=== PATIENT | male | born 1975 | race American Indian/Alaskan Native ===

== ENCOUNTER 2021-10-05 14:15 | Emergency (ER) | payer SELFPAY ==
[2021-10-05] MEDS ORDERED: KETOROLAC 60 MG/2 ML INJ IM STA (20:52)
[2021-10-05] MEDS ORDERED: oxyCODONE /ACETAMINOPHEN 5-325MG TAB PO ONE (20:52)
--- NOTE | 2021-10-05 20:54 | Emergency Department Report ---
ED General Adult HPI - General Chief complaint: Fall Stated complaint: BACK PAIN (FALL) Time Seen by Provider: 10/05/21 20:50 Source: patient Mode of arrival: Ambulatory Limitations: No Limitations - Related Data Previous Rx's Medication Instructions Recorded Last Taken Type Ketorolac [Toradol] 10 mg PO Q6H PRN #15 tablet 10/06/21 Unknown Rx methOCARBAMOL [Robaxin TAB] 750 mg PO Q8H PRN #14 tablet 10/06/21 Unknown Rx Allergies Allergy/AdvReac Type Severity Reaction Status Date / Time No Known Allergies Allergy Verified 10/05/21 14:38 ED Review of Systems ROS: Stated complaint: BACK PAIN (FALL) Other details as noted in HPI Comment: All other systems reviewed and negative ED Past Medical Hx - Social History Smoking Status: Current Every Day Smoker - Medications Home Medications: Home Medications Medication Instructions Recorded Confirmed Last Taken Type Ketorolac [Toradol] 10 mg PO Q6H PRN #15 tablet 10/06/21 Unknown Rx methOCARBAMOL [Robaxin TAB] 750 mg PO Q8H PRN #14 tablet 10/06/21 Unknown Rx ED Physical Exam - General Limitations: No Limitations General appearance: alert, in no apparent distress - Head Head exam: Present: atraumatic, normocephalic - Eye Eye exam: Present: normal appearance, PERRL, EOMI Pupils: Present: normal accommodation - ENT ENT exam: Present: normal exam, normal orophraynx, mucous membranes moist, TM's normal bilaterally - Neck Neck exam: Present: normal inspection, full ROM - Respiratory Respiratory exam: Present: normal lung sounds bilaterally. Absent: respiratory distress, wheezes, rales, rhonchi, chest wall tenderness, accessory muscle use - Cardiovascular Cardiovascular Exam: Present: regular rate, normal rhythm. Absent: systolic murmur, diastolic murmur, rubs, gallop - GI/Abdominal GI/Abdominal exam: Present: soft, normal bowel sounds. Absent: distended, tenderness - Rectal Rectal exam: Present: deferred - Extremities Exam Extremities exam: Present: normal inspection, tenderness, normal capillary refill - Expanded Upper Extremity Exam Left Shoulder Exam: Present: tenderness, tenderness over AC joint. Absent: laceration, ecchymosis, crepidus, dislocation Forearm Wrist exam: Present: full ROM, tenderness, swelling. Absent: abrasion, laceration, erythema, tenderness over anatomical snuff box, pain with axial thumb loading Vascular: Present: normal capillary refill. Absent: vascular compromise - Back Exam Back exam: Present: normal inspection, paraspinal tenderness, vertebral tenderness (lumvar and right SI joint). Absent: CVA tenderness (R), CVA tenderness (L) - Neurological Exam Neurological exam: Present: alert, oriented X3, CN II-XII intact, normal gait - Psychiatric Psychiatric exam: Present: normal affect, normal mood - Skin Skin exam: Present: warm, dry, intact, normal color. Absent: rash ED Course Vital Signs 10/05/21 14:35 Temperature 97.4 F L Pulse Rate 68 Respiratory 20 Rate Blood Pressure 188/57 O2 Sat by Pulse 100 Oximetry ED Medical Decision Making - Radiology Data Radiology results: report reviewed [address] [address] XRay Report Signed Patient: SALOMÓN LESLIE MR#: [id number] : 1975 Acct:[id number] Age/Sex: 46 / M ADM Date: 10/05/21 Loc: ED Attending Dr: Ordering Physician: HOWARD AGUIRRE Date of Service: 10/05/21 Procedure(s): XR spine lumbosacral 2-3V Accession Number(s): [id number] cc: HOWARD AGUIRRE Fluoro Time In Minutes: Lumbar spine 3 views INDICATION: Low back pain after injury IMPRESSION: Moderate neural foraminal stenosis at L5-S1 secondary to discogenic and facet arthropathy. No fracture or subluxation is is identified. Signer Name: Saran Coy MD Signed: 10/05/2021 9:52 PM Workstation Name: [id number] Transcribed By: Dictated By: Saran Coy MD Electronically Authenticated By: Saran Coy MD Signed Date/Time: 10/05/212151 DD/ 51 TD/[address] [address] XRay Report Signed Patient: SALOMÓN LESLIE MR#: [id number] : 1975 Acct:[id number] Age/Sex: 46 / M ADM Date: 10/05/21 Loc: ED Attending Dr: Ordering Physician: HOWARD AGUIRRE Date of Service: 10/05/21 Procedure(s): XR wrist 3+V LT Accession Number(s): [id number] cc: HOWARD AGUIRRE Fluoro Time In Minutes: Left wrist 4 views INDICATION: Left wrist pain after injury IMPRESSION: No fracture or subluxation of the left wrist is identified. Mild degenerative changes of the wrist noted. Chronic appearing fracture of the ulnar styloid process. Signer Name: Saran Coy MD Signed: 10/05/2021 9:54 PM Workstation Name: [id number] Transcribed By: Dictated By: Saran Coy MD Electronically Authenticated By: Saran Coy MD Signed Date/Time: 10/05/212153 DD/ 52 T:[address] [address] XRay Report Signed Patient: SALOMÓN LESLIE MR#: [id number] : 1975 Acct:[id number] Age/Sex: 46 / M ADM Date: 10/05/21 Loc: ED Attending Dr: Ordering Physician: HOWARD AGUIRRE Date of Service: 10/05/21 Procedure(s): XR shoulder 2+V LT Accession Number(s): [id number] cc: HOWARD AGUIRRE Fluoro Time In Minutes: Left shoulder 3 views INDICATION: Left shoulder pain after injury IMPRESSION: No fracture or subluxation of the left shoulder. Signer Name: Saran Coy MD Signed: 10/05/2021 9:54 PM Workstation Name: [id number] Transcribed By: Dictated By: Saran Coy MD Electronically Authenticated By: Saran Coy MD Signed Date/Time: 10/05/212153 [address] [address] XRay Report Signed Patient: SALOMÓN LESLIE MR#: [id number] : 1975 Acct:[id number] Age/Sex: 46 / M ADM Date: 10/05/21 Loc: ED Attending Dr: Ordering Physician: HOWARD AGUIRRE Date of Service: 10/05/21 Procedure(s): XR hip 2-3V RT Accession Number(s): [id number] cc: HOWARD AGUIRRE Fluoro Time In Minutes: Right hip 2 views INDICATION: Right hip pain after fall IMPRESSION: Severe degenerative changes of the right hip. No fracture or subluxation is identified. Signer Name: Saran Coy MD Signed: 10/05/2021 9:52 PM Workstation Name: [email or web address] Transcribed By: Dictated By: Saran Coy MD Electronically Authenticated By: Saran Coy MD Signed Date/Time: 10/05/212151 DD/ 50 TD/TT: - Medical Decision Making 46-year-old presents from assisted freezer resulting in pain to the shoulder breast other areas. X-rays not show anything fracture active or dislocated the few areas of severe osteoarthritis noted which may cause some mobility issues in the future Critical care attestation.: If time is entered above; I have spent that time in minutes in the direct care of this critically ill patient, excluding procedure time. ED Disposition Clinical Impression: Degenerative arthritis of hip, Lumbar stenosis Disposition: 01 HOME / SELF CARE / HOMELESS Is pt being admited?: No Does the pt Need Aspirin: No Condition: Stable Instructions: Spinal Stenosis, Total Hip Replacement, Partial Hip Replacement, Arthritis, [id number], Osteoarthritis Additional Instructions: Please sure to follow-up with orthopedic for to further evaluate your degenerated l right hip and the spinal stenosis that you are developing on the .
--- NOTE | 2021-10-05 21:56 | XRay Report ---
Right hip 2 views INDICATION: Right hip pain after fall IMPRESSION: Severe degenerative changes of the right hip. No fracture or subluxation is identified. Signer Name: Saran Coy MD Signed: 10/05/2021 9:52 PM Workstation Name: [email or web address]
--- NOTE | 2021-10-05 21:57 | XRay Report ---
Lumbar spine 3 views INDICATION: Low back pain after injury IMPRESSION: Moderate neural foraminal stenosis at L5-S1 secondary to discogenic and facet arthropathy . No fracture or subluxation is is identified. Signer Name: Saran Coy MD Signed: 10/05/2021 9:52 PM Workstation Name: [email or web address]
--- NOTE | 2021-10-05 21:58 | XRay Report ---
Left wrist 4 views INDICATION: Left wrist pain after injury IMPRESSION: No fracture or subluxation of the left wrist is identified. Mild degenerative changes of the wrist noted. Chronic appearing fracture of the ulnar styloid process. Signer Name: Saran Coy MD Signed: 10/05/2021 9:54 PM Workstation Name: [email or web address]
--- NOTE | 2021-10-05 21:58 | XRay Report ---
Left shoulder 3 views INDICATION: Left shoulder pain after injury IMPRESSION: No fracture or subluxation of the left shoulder. Signer Name: Saran Coy MD Signed: 10/05/2021 9:54 PM Workstation Name: [email or web address]
[2021-10-06 01:42] VITALS: BP 164/74
== END 2021-10-06 01:42 | disposition home or self-care (01) ==
LOC: ED 14:15
DX: M16.10 Unilateral primary osteoarthritis, unspecified hip (principal); M54.50 Low back pain, unspecified; F17.200 Nicotine dependence, unspecified, uncomplicated
CPT/HCPCS: 72100; 73030; 73110; 73502; 96372; 99283; J1885